=== PATIENT | male | born 2000 | race Caucasian/White ===

== ENCOUNTER 2019-11-14 11:12 | Outpatient (CLI) | payer BC ==
--- NOTE | 2019-11-14 12:21 | MRI ---
MRI OF THE RIGHT SHOULDER WITHOUT CONTRAST: HISTORY: Additional history of right shoulder dislocation with right shoulder pain. COMPARISON: None. FINDINGS: No Hill-Sachs deformity is present. The glenohumeral articular surface is normal-appearing. Visualize d aspects of the anterior inferior glenohumeral labral ligamentous complex appears intact. Glenohumeral articular surface is normal-appearing. There is a small foramen involving the anterosupe rior glenoid labrum. Biceps anchor complex and superior glenoid labrum are intact. Biceps tendon is located. There is mild tendinosis of the supraspinatus and infraspinatus. There is mild fluid in the subacromial subdeltoid bursa. The AC joint is within normal limits. No muscular atrophy is present. IMPRESSION: 1. Mild supraspinatus and infraspinatus tendinosis without evidence of full-thickness tear. 2. No full-thickness glenohumeral labral tear is demonstrated. There is a small foramen involving the anterosuperior glenoid labrum. Anterior inferior glenohumeral labral ligamentous complex appears intact. Biceps anchor complex and superior glenoid labrum. Intact. 3. Glenohumeral articular surface appears within normal limits. Transcribed Date/Time: 11/14/2019 12:26 PM
== END 2019-11-14 11:13 | disposition home or self-care (01) ==
LOC: SCSMRI 11:12
PROVIDERS: ATTEND Orthopaedic Surgery
DX: Z87.828 Personal history of other (healed) physical injury and trauma (principal); M67.813 Other specified disorders of tendon, right shoulder